=== PATIENT | female | born 1985 | race Caucasian/White ===

== ENCOUNTER 2017-05-17 11:31 | Emergency (ER) | payer BC ==
[2017-05-17 12:02] VITALS: TEMP 98.1
[2017-05-17 13:02] VITALS: RESP 18
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
[2017-05-17 14:15] VITALS: BP 120/67; PULSE 61
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
== END 2017-05-17 14:49 | disposition home or self-care (01) ==
LOC: EC 11:31
DX: R11.2 Nausea with vomiting, unspecified (principal); R20.2 Paresthesia of skin; Z79.3 Long term (current) use of hormonal contraceptives
CPT/HCPCS: 70450; 81025; 99284